=== PATIENT | female | born 2000 | race Caucasian/White ===

== ENCOUNTER 2021-12-22 17:32 | Inpatient (IN) | payer MEDICAID ==
[~2021-12-22] VITALS: Ht 160 cm; Wt 71.2 kg
[2021-12-22 17:44] VITALS: BP 160/88
[2021-12-22] MEDS ORDERED: ACETAMINOPHEN EXTRA STRENGTH 500 MG TAB PO ONE (18:15)
--- NOTE | 2021-12-22 18:26 | NUR ---
PT AMBULATED TO ER BED 5, LAB AT BEDSIDE
--- NOTE | 2021-12-22 18:29 | NUR ---
LAB AT BEDSIDE
--- NOTE | 2021-12-22 18:35 | NUR ---
20 Y/O FEMALE BIB SELF C/O VAGINAL BLEEDING X 1 MONTH, DENIES ANY CLOTS, CRAMPING ABD PAIN 5/10 [id number] NOW. DENIES ANY MEDICATION FOR PAIN, DENIES ANY CHEST PAIN, NAUSEA AND VOMITING. PT STATES THEY SOAK 1 PAD EVERY 2 HOURS. NKA PMH: DENIES
--- NOTE | 2021-12-22 18:42 | NUR ---
PT AMBULATED TO BATHROOM WITH STEADY GAIT
--- NOTE | 2021-12-22 18:48 | NUR ---
HANDED URINE TO [employer] TECH
--- NOTE | 2021-12-22 18:50 | NUR ---
DR GALLAGHER AT BEDSIDE FOR EVAL
[2021-12-22 18:56] LABS: BASOPHILS # (AUTO) 0.1 K/uL (0.00-0.22); BASOPHILS % (AUTO) 1.2 % (0.0-2.0); EOSINOPHILS # (AUTO) 0.1 K/uL (0-0.4); EOSINOPHILS % (AUTO) 1.9 % (0.0-4.0); HEMATOCRIT 22.9 % (36-48); LYMPHOCYTES # (AUTO) 2.2 K/uL (2.5-16.5); LYMPHOCYTES % (AUTO) 28.6 % (20.5-51.1); MEAN CORPUSCULAR HEMOGLOBIN 15 pg (27-31); MEAN CORPUSCULAR HGB CONC 27 g/dL (33-37); MEAN CORPUSCULAR VOLUME 56.1 fL (80-94); MONOCYTES # (AUTO) 0.5 K/uL (0.8-1.0); MONOCYTES % (AUTO) 5.8 % (1.7-9.3); NEUTROPHILS # (AUTO) 4.9 K/uL (1.8-7.7); NEUTROPHILS % (AUTO) 62.5 % (42.2-75.2); PLATELET COUNT (AUTO) 238 K/uL (140-450); RED BLOOD CELL COUNT(AUTO) 4.08 MIL/uL (4.20-5.40); RED CELL DISTRIBUTION WIDTH 22.9 % (11.6-13.7); WHITE BLOOD COUNT (AUTO) 7.8 K/uL (4.5-11.0)
[2021-12-22 19:14] LABS: HEMOGLOBIN 6.2 g/dL (12.0-16.0)
[2021-12-22 19:24] LABS: ANION GAP 12.3 (8-16); CARBON DIOXIDE 25.9 mmol/L (21-32); CREATININE 0.7 mg/dL (0.6-1.3); POTASSIUM 3.2 mmol/L (3.5-5.1)
[2021-12-22 19:30] LABS: PROTHROMBIN TIME 10.4 secs (10.8-13.4)
[2021-12-22 19:31] LABS: BILIRUBIN,URINE NEGATIVE (NEGATIVE); BLOOD, URINE 3+ (NEGATIVE); COLOR,URINE YELLOW (YELLOW); LEUKOCYTE ESTERASE ,URINE TRACE (NEGATIVE); NITRITE, URINE NEGATIVE (NEGATIVE); PH,URINE 5.5 (5.0-9.0); UGLUCOSE NEGATIVE (NEGATIVE)
[2021-12-22 19:33] LABS: APPEARANCE,URINE HAZY (CLEAR)
--- NOTE | 2021-12-22 19:33 | NUR ---
Pt report given to BILLY BHAT. Transfer of care at this time.
[2021-12-22 19:49] LABS: RBC,URINE 0-5 /HPF (0-5)
--- NOTE | 2021-12-22 20:28 | NUR ---
SWABS TAKEN TO LAB
--- NOTE | 2021-12-22 20:59 | NUR ---
Patient will be admitted to care of . Admited to MED SURG. Will go to room 104A. Belongings list completed. Report to
--- NOTE | 2021-12-22 21:25 | NUR ---
RECEIVED PT REPORT FROM ER NURSE. PT ARRIVED VIA GURNEY WITH SISTER. PT AMBULATED TO BED. PT A&O X 4. ON ROOM AIR. BREATHING EQUAL AND UNLABORED WITH NO DISTRESS NOTED. DENIES PAIN. IV ON R AC G 20, PATENT AND INTACT. SKIN WARM, DRY AND INTACT. MRSA SWAB DONE. ORIENTED TO CALL LIGHT AND ROOM. ALL SAFETY PRECAUTIONS IN PLACE. CALL LIGHT WITHIN REACH. WILL CONTINUE TO MONITOR.
[2021-12-22] MEDS ORDERED: POTASSIUM CHLORIDE 10 MEQ TABER PO PRN (22:30)
[2021-12-22] MEDS ORDERED: ACETAMINOPHEN 325 MG TAB PO PRN (22:30)
[2021-12-22] MEDS ORDERED: ZOLPIDEM 5 MG TAB PO PRN (22:30)
[2021-12-22] MEDS ORDERED: ONDANSETRON 4 MG/2 ML VIAL IM/IVP PRN (22:30)
[2021-12-22] MEDS ORDERED: DOCUSATE SODIUM 100 MG GELCAP PO PRN (22:30)
[2021-12-22] MEDS ORDERED: guaiFENesin DM 200/20 MG-10 ML 10 ML UDC PO PRN (22:30)
--- NOTE | 2021-12-22 22:50 | NUR ---
BLOOD TRANSFUSION STARTED.PT TOLERATING WELL.CALL LIGHT WITHIN REACH. WILL CONTINUE TO MONITOR.
[2021-12-22 22:53] LABS: BARBITURATE, URINE NEGATIVE ng/ml (NEG <=200); BENZODIAZEPINE, URINE NEGATIVE ng/mL (NEG <=200); CANNABINOID, URINE NEGATIVE ng/mL (NEG <=50); COCAINE, URINE NEGATIVE ng/mL (NEG <=300); OPIATE, URINE NEGATIVE ng/mL (NEG <=2000); PHENCYCLIDINE SCREEN,URINE NEGATIVE ng/mL (NEG <=25)
[2021-12-22 23:10] LABS: CHOL/HDL RATIO 2.8 (1-4.5); FREE T4 (FREE THYROXINE) 1.19 ng/dL (0.76-1.46); MAGNESIUM 2.2 mg/dL (1.8-2.4); PHOSPHORUS 3.8 mg/dL (2.5-4.9); THYROID STIMULATING HORMONE 0.82 uIU/mL (0.34-3.74)
--- NOTE | 2021-12-22 23:15 | NUR ---
SCHEDULED MED GIVEN.POTASSIUM WAS 3.2. PRN KDUR GIVEN. PT TOLERATED WELL. WILL CONTINUE TO MONITOR.
[2021-12-23] VITALS: BP 110/45
--- NOTE | 2021-12-23 02:41 | NUR ---
BLOOD TRANSFUSION DONE. NO REACTION NOTED. PT TOLERATED WELL. ALL PRECAUTIONS IN PLACE. WILL CONTINUE TO MONITOR.
--- NOTE | 2021-12-23 04:21 | NUR ---
PT ASLEEP. VISIBLE CHEST RISE AND FALL NOTED. NO RESPIRATORY DISTRESS NOTED. ALL PRECAUTIONS IN PLACE.CALL LIGHT WITHIN REACH. WILL CONTINUE TO MONITOR.
--- NOTE | 2021-12-23 06:16 | NUR ---
PT IS STABLE. NO ACUTE EVENTS THROUGHOUT THE NIGHT.DENIES PAIN. NO S/SX OF DISTRESS AT THIS MOMENT.ALL NEEDS MET. ALL PRECAUTIONS IN PLACE. CALL LIGHT WITHIN REACH. WILL ENDORSE TO AM SHIFT NURSE.
--- NOTE | 2021-12-23 06:18 | NUR ---
The patient's care was reviewed and supervised by Megan Pires RN. Chart checked.
[2021-12-23 06:37] LABS: BASOPHILS # (AUTO) 0.1 K/uL (0.00-0.22); BASOPHILS % (AUTO) 1.1 % (0.0-2.0); EOSINOPHILS # (AUTO) 0.2 K/uL (0-0.4); HEMATOCRIT 25.1 % (36-48); HEMOGLOBIN 7.1 g/dL (12.0-16.0); LYMPHOCYTES # (AUTO) 2.7 K/uL (2.5-16.5); LYMPHOCYTES % (AUTO) 38.8 % (20.5-51.1); MEAN CORPUSCULAR HEMOGLOBIN 17 pg (27-31); MEAN CORPUSCULAR HGB CONC 28 g/dL (33-37); MEAN CORPUSCULAR VOLUME 59.6 fL (80-94); MONOCYTES # (AUTO) 0.7 K/uL (0.8-1.0); MONOCYTES % (AUTO) 9.7 % (1.7-9.3); NEUTROPHILS # (AUTO) 3.3 K/uL (1.8-7.7); NEUTROPHILS % (AUTO) 47.4 % (42.2-75.2); PLATELET COUNT (AUTO) 201 K/uL (140-450); RED BLOOD CELL COUNT(AUTO) 4.22 MIL/uL (4.20-5.40); RED CELL DISTRIBUTION WIDTH 26.2 % (11.6-13.7); WHITE BLOOD COUNT (AUTO) 6.9 K/uL (4.5-11.0)
[2021-12-23 06:45] LABS: CARBON DIOXIDE 23.9 mmol/L (21-32); CREATININE 0.6 mg/dL (0.6-1.3); POTASSIUM 3.9 mmol/L (3.5-5.1)
--- NOTE | 2021-12-23 07:15 | NUR ---
ENDORSED PT TO AM SHIFT NURSE FOR CONTINUITY OF CARE. PT IS STABLE.
--- NOTE | 2021-12-23 07:16 | NUR ---
RECEIVED REPORT FROM MODELING INSTRUCTOR NURSE FOR CONTINUITY OF CARE. PT IN BED ON HER PHONE AT THIS TIME. RESPIRATIONS ARE EVEN AND UNLABORED ON ROOM AIR. NO SIGNS OF DISTRESS NOTED. PT IS ALERT AND ORIENTED X4, ABLE TO VERBALIZE NEEDS TO STAFF, ABLE TO FOLLOW COMMANDS. PT IS ON REGULAR DIET. ABD IS NONTENDER, NONDISTENDED WITH BOWEL SOUNDS PRESENT IN ALL QUADRANTS. PT STATES LAST BOWEL MOVEMENT WAS YESTERDAY. PT IS CONTINENT OF BOWEL AND BLADDER. PT IS ABLE TO AMBULATE INDEPENDENTLY TO REST ROOM. SKIN IS WARM, DRY, AND INTACT. PT HAS IV TO R AC, 20G. SALINE LOCKED. CALL LIGHT WITHIN REACH. ALL SAFETY MEASURES IN PLACE. WILL CONTINUE TO MONITOR.
[2021-12-23 08:00] VITALS: BP 101/63
[2021-12-23] MEDS: PANTOPRAZOLE 40 MG TABEC PO SCH (08:17)
--- NOTE | 2021-12-23 08:20 | NUR ---
ADMINISTERED ALL SCHEDULED MEDICATIONS. EDUCATED PT ON MEDS ADMINISTERED. PT VERBALIZED UNDERSTANDING. PT TOLERATED WELL. WILL CONTINUE TO MONITOR.
[2021-12-23] MEDS: HYDROcodone/APAP 7.5/325 MG 1 TAB PO PRN ×2 (11:27→21:51)
--- NOTE | 2021-12-23 11:29 | NUR ---
PT COMPLAINS OF PAIN. STATES PAIN IS 6/10. MEDICATED. WILL CONTINUE TO MONITOR.
--- NOTE | 2021-12-23 12:27 | NUR ---
WENT TO RE-ASSESS PT. PT SLEEPING AT THIS TIME. WILL CONTINUE TO MONITOR.
--- NOTE | 2021-12-23 15:10 | NUR ---
SPOKE WITH DR MARTI. PER , PT IS OK TO DISCHARGE HOME. PT WILL NEED TO FOLLOW UP WITH DR MARTI IN HIS OFFICE. DR YANG MADE AWARE. AWAITING DISCHARGE ORDER. WILL CONTINUE TO MONITOR.
--- NOTE | 2021-12-23 15:13 | NUR ---
DR YANG INFORMED, STATED HE WILL KEEP PT ONE MORE DAY DUE TO HGB 7.1, STATES HE WILL HAVE CBC REPEATED. WILL CONTINUE TO MONITOR.
--- NOTE | 2021-12-23 15:45 | NUR ---
UPDATED PT WITH DR HERRING PLAN OF CARE. PT IN AGREEMENT WITH POC. WILL CONTINUE TO MONITOR.
[2021-12-23 16:00] VITALS: BP 104/62
[2021-12-23 19:04] LABS: BASOPHILS # (AUTO) 0.1 K/uL (0.00-0.22); BASOPHILS % (AUTO) 1.7 % (0.0-2.0); EOSINOPHILS # (AUTO) 0.3 K/uL (0-0.4); EOSINOPHILS % (AUTO) 4.6 % (0.0-4.0); HEMATOCRIT 26.4 % (36-48); HEMOGLOBIN 7.5 g/dL (12.0-16.0); LYMPHOCYTES # (AUTO) 2.7 K/uL (2.5-16.5); LYMPHOCYTES % (AUTO) 37.3 % (20.5-51.1); MEAN CORPUSCULAR HEMOGLOBIN 17 pg (27-31); MEAN CORPUSCULAR HGB CONC 28 g/dL (33-37); MEAN CORPUSCULAR VOLUME 59.5 fL (80-94); MONOCYTES # (AUTO) 0.7 K/uL (0.8-1.0); MONOCYTES % (AUTO) 9.1 % (1.7-9.3); NEUTROPHILS # (AUTO) 3.5 K/uL (1.8-7.7); NEUTROPHILS % (AUTO) 47.3 % (42.2-75.2); PLATELET COUNT (AUTO) 215 K/uL (140-450); RED BLOOD CELL COUNT(AUTO) 4.44 MIL/uL (4.20-5.40); RED CELL DISTRIBUTION WIDTH 25.6 % (11.6-13.7); WHITE BLOOD COUNT (AUTO) 7.3 K/uL (4.5-11.0)
--- NOTE | 2021-12-23 19:13 | NUR ---
ENDORSED PT TO DISPENSARY ATTENDANT NURSE FOR CONTINUITY OF CARE. PT IS STABLE.
--- NOTE | 2021-12-23 19:14 | NUR ---
RECEIVE REPORT FROM MARIAMA BHAT , PATIENT IN THE BED WITH FAMILY AT BEDSIDE. PATIENT IS ON ROOM AIR BREATHING WITHOUT PAIN/DISCOMFORT. PATIENT DENIES ANY PAIN/DISCOMFORT. WENT OVER THE MD'S PLANS FOR DISCHARGE WHEN THE HEMOGLOBIN RISES BEFORE DISCHARGE PLANS SOON TOMORROW. SIDE RAILS UP X 2 FOR ASSISTANCE. CALL LIGHT WITHIN REACH. PATIENT WAS ENCOURAGED TO USE THE CALL LIGHT FOR ALL ASSISTANCE AND NEEDS. IV SITE CLEAN AND INTACT NO COMPLAINTS OF PAIN/DISCOMFORT. [email or web address]
--- NOTE | 2021-12-23 21:00 | NUR ---
Patient's Plan of Care was discussed and reviewed with AUTISM MOTOR SPECIALIST: CARLTON CASTELLANOS
--- NOTE | 2021-12-23 21:14 | NUR ---
PATIENT WAS IN BED ON HER PHONE. SIDE RAILS X 2 FOR ADJUSTMENTS. PATIENT DENIES ANY VAGINAL DISCHARGE AT THIS TIME. PATIENT REMAINS KEEP AND DRY. NO NOTED ACUTE PAIN/DISCOMFORT. NO NOTED ACUTE RESPIRATORY DISTRESS/DISCOMFORT. [email or web address]
--- NOTE | 2021-12-23 21:51 | NUR ---
PATIENT WAS GIVEN PRN PAIN MEDICATION FOR C/O PAIN TO IV SITE. IV WAS FLUSHED WITH NORMAL SALINE AND PATIENT WAS TOOK THE PAIN/MEDICATION WITHOUT INCIDENT. NURSING WILL REASSESS IN ONE HOUR. [email or web address]
--- NOTE | 2021-12-24 01:14 | NUR ---
JENNIFER REQUESTED A ROOM CHANGE BECAUSE NEW ADMISSION IS LOUD AND ANGRY. PATIENT WAS ABLE TO AMBULATE TO ROOM 119B FOR THE REST OF HER STAY WITH [facility] BED AT THE LOWEST LEVEL HEAD OF BE ELEVATED FOR COMFORT. NO S/SX OF PAIN OR DISCOMFORT. SIDE RAIL UP X 2. CALL LIGHT WITHIN REACH TO CALL FOR ASSISTANCE. NO NOTED VAGINAL BLEEDING AT THIS TIME. [email or web address]
--- NOTE | 2021-12-24 03:14 | NUR ---
PATIENT IN BED ASLEEP WITHOUT INCIDENT. BED AT THE LOWEST LEVEL HEAD OF BE ELEVATED FOR COMFORT. NO S/SX OF PAIN OR DISCOMFORT. NO NOTED VAGINAL BLEEDING AT THIS TIME. [email or web address]
[2021-12-24 04:00] VITALS: BP 120/71
--- NOTE | 2021-12-24 07:12 | NUR ---
PATIENT HAS BEEN SCREENED AND CATEGORIZED LOW NUTRITION RISK. PATIENT WILL BE SEEN WITHIN 7 DAYS OF ADMISSION. 12/30/21 PER VELAZCO MS, RDN
--- NOTE | 2021-12-24 07:19 | NUR ---
PATIENT WAS ENDORSED TO YOKASTA BHAT. PATIENT IS IN BED A STABLE FOR CONTINUITY OF CARE [email or web address]
--- NOTE | 2021-12-24 07:20 | NUR ---
RECEIVED ENDORSEMENT FROM TIME BROKER NURSE FOR CONTINUITY OF CARE. ASLEEP NO DISTRESS NOTED. RESPIRATION EVEN NAD NOT LABORED NO SHORTNESS OF BREATH. IV SITE ON RIGHT AC NINO 20 SALINE LOCK ALL SAFETY MEASURE IN PLACE.
--- NOTE | 2021-12-24 08:00 | NUR ---
Patient's Plan of Care was discussed and reviewed with TEMPLE MARKER: YOKASTA LAI
[2021-12-24] MEDS: PANTOPRAZOLE 40 MG TABEC PO SCH (08:27)
--- NOTE | 2021-12-24 08:28 | NUR ---
PATIENT AWAKE ORIENTED NO DISTRESS NOTED.DENIES PAIN. GIVEN PANTOPRAZOLE MD ORDER. TOLERATED WELL. ALL SAFETY MEASURE IN PLACE.
[2021-12-24 09:06] LABS: T4 (THYROXINE) 10.5 ug/dL (4.5-12.0)
[2021-12-24 09:53] LABS: HEMATOCRIT 26.3 % (36-48); HEMOGLOBIN 7.4 g/dL (12.0-16.0); MEAN CORPUSCULAR HEMOGLOBIN 17 pg (27-31); MEAN CORPUSCULAR HGB CONC 28 g/dL (33-37); MEAN CORPUSCULAR VOLUME 59.2 fL (80-94); PLATELET COUNT (AUTO) 211 K/uL (140-450); RED BLOOD CELL COUNT(AUTO) 4.45 MIL/uL (4.20-5.40); RED CELL DISTRIBUTION WIDTH 25.9 % (11.6-13.7); WHITE BLOOD COUNT (AUTO) 5.5 K/uL (4.5-11.0)
[2021-12-24 10:01] LABS: ANION GAP 11.2 (8-16); CARBON DIOXIDE 26.1 mmol/L (21-32); CREATININE 0.7 mg/dL (0.6-1.3); POTASSIUM 4.3 mmol/L (3.5-5.1)
[2021-12-24 10:15] LABS: EOSINOPHILS % (MANUAL) 7 % (0-4); LYMPHOCYTES % (MANUAL) 31 % (20-46); MONOCYTES % (MANUAL) 12 % (5-12)
--- NOTE | 2021-12-24 10:30 | NUR ---
PATIENT ON BED RESTING NO DISTRESS NOTED. ALL SAFETY MEASURE IN PLACE.
--- NOTE | 2021-12-24 11:30 | NUR ---
DR. QUIROZ AT BED SIDE.
--- NOTE | 2021-12-24 12:25 | NUR ---
PATIENT ASKING IF SHE CAN GO HOME TODAY. INFORM DR. QUIROZ AND SHE RESPONDED THAT IF IT'S OKAY WITH DR. MARTI ITS OKAY WITH HER TOO. LEFT MESSAGE TO DR. MARTI. INFORM PATIENT.
--- NOTE | 2021-12-24 12:28 | NUR ---
DR. MARTI RESPONDED OKAY WITH HIM AND JUST SHE PATIENT OUT PATIENT FOLLOW UP. INFORM DR. QUIROZ OF DR. MARTI RESPONSE.
--- NOTE | 2021-12-24 14:58 | NUR ---
INFORM PATIENT OF DISCHARGE ORDER FOR HER. PATIENT VERY HAPPY TO HEAR IT.
[2021-12-24 15:03] VITALS: BP 108/68
--- NOTE | 2021-12-24 15:31 | NUR ---
GIVEN DISCHARGE PACKET WITH INSTRUCTION VERBALIZED UNDERSTANDING. REMOVED IV SITE WITH CATHETER INTACT. NAME BAND REMOVED. PATIENT WITH RELATIVE TOOK ALL BELONGING AND AMBULATE TO THEIR PRIVATE CAR.
== END 2021-12-24 15:30 | disposition home or self-care (01) | DRG 532 ==
LOC: MED 17:32 → MMU 20:59 → MTU 21:03
PROVIDERS: ADMIT Family Medicine; ATTEND Family Medicine
PROC: 30233N1 Transfusion of Nonautologous Red Blood Cells into Peripheral Vein, Percutaneous Approach (ICD-10-PCS; principal; 2021-12-22)
DX: N92.6 Irregular menstruation, unspecified (principal); G93.41 Metabolic encephalopathy; D64.9 Anemia, unspecified; E87.6 Hypokalemia; N39.0 Urinary tract infection, site not specified; Z20.822 Contact with and (suspected) exposure to COVID-19
CPT/HCPCS: 36415; 36430; 71045; 76830; 80048; 80305; 81001; 82150; 83036; 83690; 83735; 83880; 84100; 84436; 84439; 84443; 84479; 84484; 84702; 85025; 85610; 85730; 86886; 86900; 86901; 86920; 87081; 87086; 93005; 99285; J1050; P9016; Q0092